=== PATIENT | male | born 1960 | race Caucasian/White ===

== ENCOUNTER 2019-08-08 09:09 | Observation (INO) ==
[2019-08-08 09:45] LABS: Basophils # 0.1 10*3/uL (0.0-0.2); Basophils % 0.6 % (0.0-0.8); Eosinophils # 0.1 10*3/uL (0.0-0.87); Eosinophils % 0.8 % (0.00-10.9); Hematocrit 50.9 VOL% (42.0-52.0); Hemoglobin 16.1 GM/DL (14.0-18.0); Immature Granulocytes % 0.4 %; Immature Granulocytes Absolute 0.03 #; Lymphocytes % 12.1 % (21.2-54.2); Mean Corpuscular HGB Conc 31.6 GM/DL (32-36); Mean Corpuscular Volume 93.2 FL (87-102); Mean Platelet Volume 10.9 FL (9.6-12.0); Monocytes % 5.7 % (1.7-12.7); Neutrophils % 80.4 % (38.7-73.9); Platelet Count 214 T/CUMM (130-400); Red Blood Count 5.46 MC/CUMM (3.8-5.5); Red Cell Distribution Width 13.6 % (9.3-17.3); White Blood Count 8.3 T/CUMM (4-12)
[2019-08-08 09:57] LABS: Calcium 9.4 MG/DL (8.5-10.1); Osmolality,Calculated 277.1 MOS/KG (273-304); Troponin I < 0.015 NG/ML (0.00-0.045)
[2019-08-08] MEDS ORDERED: ONDANSETRON 4 MG/2 ML VIAL IV STA (10:35)
[2019-08-08] MEDS ORDERED: ONDANSETRON 4 MG/2 ML VIAL ONE (10:36)
[2019-08-08] MEDS ORDERED: SODIUM CHLORIDE 0.9% 1,000 ML IV STA (11:47)
[2019-08-08] MEDS ORDERED: MORPHINE 4 MG/1 ML VIAL IV PRN (14:10)
[2019-08-08] MEDS ORDERED: ACETAMINOPHEN 325 MG TABLET PO PRN (14:10)
[2019-08-08] MEDS ORDERED: NICOTINE 21 MG/24 HR PATCH TRANSDERM PRN (14:10)
[2019-08-08] MEDS ORDERED: hydrALAZINE 20 MG/1 ML VIAL IV PRN (14:10)
[2019-08-08] MEDS ORDERED: BISACODYL 5 MG TABLET PO PRN (14:10)
[2019-08-08] MEDS ORDERED: APIXABAN 5 MG TABLET PO SCH (14:30)
[2019-08-08] MEDS ORDERED: MECLIZINE 25 MG TABLET PO STA (14:41)
[2019-08-08] MEDS ORDERED: methylPREDNISolone SOD SUC 125 MG/2 ML VIAL IV STA (14:41)
[2019-08-08] MEDS ORDERED: SODIUM CHLORIDE 0.9% 1,000 ML IV ONE (14:50)
[2019-08-08] MEDS: SODIUM CHLORIDE 0.9% 1,000 ML IV SCH (15:19)
[2019-08-08] MEDS: PANTOPRAZOLE 40 MG TABLET PO SCH (17:10)
[2019-08-08] MEDS: METOPROLOL TARTRATE 50 MG TABLET PO SCH (21:33)
[2019-08-08] MEDS: PROPAFENONE 150 MG TABLET PO SCH (21:33)
[2019-08-08] MEDS: APIXABAN 5 MG TABLET PO SCH (21:33)
[2019-08-09 01:29] LABS: Apearance,Urine CLEAR (Clear); Bacteria,Urine Occasional /HPF (Few); Bilirubin,Urine Negative (Negative); Blood, Urine Small mg/dL (Negative); Glucose,Urine (UA) 150 mg/dL (Negative); Ketones,Urine Negative (Negative); Mucus,Urine Occasional /LPF (Occasional); Nitrite,Urine Negative (Negative); Protein,Urine Negative; RBC,Urine 1 /HPF (0-4); Urine Color Yellow (Yellow); Urine Specific Gravity 1.014 (1.001-1.035); Urine Urobilinogen < 2.0 EU/DL (0.2-1.0); WBC,Urine 1 /HPF (0-6)
[2019-08-09] MEDS: SODIUM CHLORIDE 0.9% 1,000 ML IV SCH ×2 (02:16→09:37)
[2019-08-09 05:12] LABS: Basophils % 0.1 % (0.0-0.8); Eosinophils % 0.1 % (0.00-10.9); Hematocrit 48.9 VOL% (42.0-52.0); Hemoglobin 15.3 GM/DL (14.0-18.0); Immature Granulocytes % 0.4 %; Immature Granulocytes Absolute 0.03 #; Lymphocytes % 11.9 % (21.2-54.2); Mean Corpuscular HGB Conc 31.3 GM/DL (32-36); Mean Corpuscular Volume 94.2 FL (87-102); Mean Platelet Volume 10.9 FL (9.6-12.0); Neutrophils % 82.5 % (38.7-73.9); Platelet Count 231 T/CUMM (130-400); Red Blood Count 5.19 MC/CUMM (3.8-5.5); Red Cell Distribution Width 13.6 % (9.3-17.3); White Blood Count 8.1 T/CUMM (4-12)
[2019-08-09] MEDS: PROPAFENONE 150 MG TABLET PO SCH ×2 (05:42→13:15)
[2019-08-09 05:59] LABS: Albumin 3.5 G/DL (3.4-5.0); Bilirubin,Total 1.1 MG/DL (0.2-1.0); Calcium 8.6 MG/DL (8.5-10.1); Osmolality,Calculated 284.4 MOS/KG (273-304); Risk Ratio 7.32; Thyroid Stimulating Hormone 0.483 uIU/ml (0.358-3.74); Total Protein 7.3 G/DL (6.4-8.3); VLDL CHOLESTEROL 49.2 MG/DL
[2019-08-09] MEDS ORDERED: ASPIRIN EC 81 MG TABLET PO SCH (09:00)
[2019-08-09] MEDS: PANTOPRAZOLE 40 MG TABLET PO SCH (09:26)
[2019-08-09] MEDS: APIXABAN 5 MG TABLET PO SCH (09:26)
[2019-08-09] MEDS: METOPROLOL TARTRATE 50 MG TABLET PO SCH (09:33)
[2019-08-09 10:26] VITALS: BP 111/75
== END 2019-08-09 12:53 | disposition home or self-care (01) ==
LOC: N.EDINP 09:09 → N.ED 09:09 → N.TELES 14:32
PROVIDERS: ADMIT Internal Medicine Cardiovascular Disease; ATTEND Internal Medicine Cardiovascular Disease